=== PATIENT | female | born 1990 | race Two or more races ===

== ENCOUNTER 2018-12-22 20:22 | Emergency (ER) | payer MEDICAID ==
[~2018-12-22] VITALS: Ht 167.6 cm; Wt 81.6 kg
[~2018-12-22 20:22] MED LIST: PRENCAP61 OR
[2018-12-22 22:46] VITALS: BP 104/72
[2018-12-23] MEDS ORDERED: IBUPROFEN 800 MG TAB PO ONE (02:30)
== END 2018-12-23 02:31 | disposition home or self-care (01) ==
LOC: ER 20:29
DX: M79.672 Pain in left foot (principal)
CPT/HCPCS: 73630

== ENCOUNTER 2021-09-17 01:27 | Emergency (ER) | payer MEDICAID ==
[~2021-09-17] VITALS: Ht 162.6 cm; Wt 104.3 kg
[2021-09-17 02:03] VITALS: BP 146/87
[2021-09-17 03:20] LABS: Basophils # (auto) 0.1 10 ^3/uL (0-0.2); Basophils % (auto) 0.5 % (0.0-2.0); Eosinophils # (auto) 0.1 10 ^3/uL (0-0.8); Eosinophils % (auto) 0.8 % (0.0-7.0); Hematocrit 41.3 % (36.0-46.0); Hemoglobin 14.4 g/dL (12.2-16.2); Lymphocytes # (auto) 1.6 10 ^3/uL (0.4-5.4); Lymphocytes % (auto) 14.9 % (10.0-50.0); Mean Corpuscular Hemoglobin 32.1 pg (28.0-32.0); Mean Corpuscular Hgb Conc. 34.8 g/dL (32.0-36.0); Mean Corpuscular Volume 92.3 fL (80.0-100.0); Monocytes # (auto) 0.5 10 ^3/uL (0-1.3); Monocytes % (auto) 4.9 % (0.0-12.0); Neutrophils # (auto) 8.7 10 ^3/uL (1.6-8.6); Neutrophils % (auto) 78.9 % (37.0-80.0); Nucleated Red Blood Cells % 0.1 %; Red Blood Cells 4.47 10^6/uL (4.0-5.20); Red Cell Distribution Width 12.4 % (11.8-14.3)
[2021-09-17 03:24] LABS: Alanine Aminotransferase 26 U/L (13-56); Albumin 3.8 g/dL (3.4-5.0); Anion Gap 9 (5-15); Aspartate Aminotransferase 14 U/L (15-37); BUN/Creatinine Ratio 13.4; Blood Urea Nitrogen 9 mg/dL (7-18); Calcium 8.7 mg/dL (8.5-10.1); Carbon Dioxide 23 mmol/L (21-32); Chloride 107 mmol/L (98-107); GFR African American 130 mL/min; GFR Non-African American 108 mL/min; Glucose 98 mg/dL (74-106); Potassium 3.5 mmol/L (3.5-5.1); Sodium 139 mmol/L (136-145)
[2021-09-17 03:26] LABS: Alkaline Phosphatase 109 U/L (45-117); Bilirubin, Total 0.4 mg/dL (0.2-1.0); Total Protein 7.9 g/dL (6.4-8.2)
== END 2021-09-17 04:19 | disposition left against medical advice (07) ==
LOC: ER 01:30
DX: R07.9 Chest pain, unspecified (principal); Z53.21 Procedure and treatment not carried out due to patient leaving prior to being seen by health care provider
CPT/HCPCS: 36415; 71045; 80053; 85025; 93005

== ENCOUNTER 2022-04-09 15:23 | Emergency (ER) | payer MEDICAID ==
[~2022-04-09] VITALS: Ht 162.6 cm; Wt 103.0 kg
[2022-04-09 18:26] VITALS: BP 135/95
[2022-04-09] MEDS ORDERED: TRAM-297 PO (19:09)
[2022-04-09] MEDS ORDERED: traMADol HCL 50 MG TAB PO ONE (19:15)
== END 2022-04-09 19:39 | disposition home or self-care (01) ==
LOC: ER 15:23
DX: M79.604 Pain in right leg (principal); Z98.51 Tubal ligation status; Z98.890 Other specified postprocedural states
CPT/HCPCS: 93971

== ENCOUNTER 2023-08-09 21:01 | Emergency (ER) | payer MEDICAID ==
[~2023-08-09] VITALS: Ht 162.6 cm; Wt 100.0 kg
[~2023-08-09 21:01] MED LIST changes: +TRAM-297 PO
[2023-08-10 00:14] LABS: Basophils # (auto) 0.1 10 ^3/uL (0-0.2); Basophils % (auto) 0.8 % (0.0-2.0); Eosinophils # (auto) 0.1 10 ^3/uL (0-0.8); Eosinophils % (auto) 0.9 % (0.0-7.0); Hematocrit 41.7 % (36.0-46.0); Hemoglobin 14.2 g/dL (12.2-16.2); Lymphocytes # (auto) 2.4 10 ^3/uL (0.4-5.4); Lymphocytes % (auto) 23.1 % (10.0-50.0); Mean Corpuscular Hemoglobin 31.5 pg (28.0-32.0); Mean Corpuscular Volume 92.7 fL (80.0-100.0); Monocytes # (auto) 0.7 10 ^3/uL (0-1.3); Monocytes % (auto) 6.5 % (0.0-12.0); Neutrophils # (auto) 7.2 10 ^3/uL (1.6-8.6); Neutrophils % (auto) 68.7 % (37.0-80.0); Nucleated Red Blood Cells % 0.1 %; Red Cell Distribution Width 12.3 % (11.8-14.3); White Blood Cell 10.5 10^3/uL (4.4-10.8)
[2023-08-10 00:31] LABS: Alanine Aminotransferase 19 U/L (7-40); Albumin 4.5 g/dL (3.2-4.8); Alkaline Phosphatase 101 U/L (46-116); Anion Gap 6 (5-15); Aspartate Aminotransferase 14 U/L (13-40); Blood Urea Nitrogen 13 mg/dL (9-23); Calcium 9.1 mg/dL (8.7-10.4); Carbon Dioxide 25 mmol/L (20-30); Chloride 109 mmol/L (98-107); Glucose 105 mg/dL (74-106); Potassium 3.9 mmol/L (3.5-5.1); Sodium 140 mmol/L (136-145)
[2023-08-10 00:32] LABS: Bilirubin, Total 0.4 mg/dL (0.2-1.0); Total Protein 7.6 g/dL (5.7-8.2)
[2023-08-10 00:45] VITALS: BP 135/65; PULSE 78; RESP 18; O2SAT 98
[2023-08-10] MEDS: KETOROLAC TROMETH 60MG/2ML VIAL IM ONE (00:48)
[2023-08-10] MEDS ORDERED: OMEP-335 PO (02:17)
== END 2023-08-10 03:17 | disposition left against medical advice (07) ==
LOC: ER 21:01
DX: K29.70 Gastritis, unspecified, without bleeding (principal); Z79.899 Other long term (current) drug therapy
CPT/HCPCS: 36415; 74176; 76705; 80053; 83605; 85025; 96372; 99285; J1885

== ENCOUNTER 2024-01-30 22:21 | Inpatient (IN) | payer MEDICAID ==
[~2024-01-30] VITALS: Ht 154.9 cm; Wt 102.2 kg
[~2024-01-30 22:21] MED LIST changes: +OMEP-335 PO
[2024-01-30 23:21] LABS: Urine Bacteria None Seen /hpf (None Seen)
[2024-01-30 23:28] LABS: Urine Blood TRACE /uL (Negative); Urine Clarity Clear (Clear); Urine Color Light-Yellow (Yellow); Urine Protein, UAD Negative (Negative); Urine Specific Gravity 1.027 (1.001-1.035); Urine Urobilinogen 4 mg/dL (Negative); Urine WBC 1 /hpf (0 - 5); Urine pH 6.5 (5.0-9.0)
[2024-01-30 23:54] LABS: Chloride 110 mmol/L (98-107); Potassium 3.8 mmol/L (3.5-5.1); Sodium 138 mmol/L (136-145)
[2024-01-30 23:55] LABS: Anion Gap 9 (5-15); Calcium 9.3 mg/dL (8.7-10.4); Carbon Dioxide 19 mmol/L (20-30)
[2024-01-31] VITALS (20 sets, daily range): BP systolic 102–123; BP diastolic 57–75; PULSE 58–75; RESP 14–22; TEMP 97.3–98.1; O2SAT 95–98
[2024-01-31] LABS: BUN/Creatinine Ratio 12.6 (10.0-20.0); Blood Urea Nitrogen 12 mg/dL (9-23); Glucose 134 mg/dL (74-106)
[2024-01-31 00:29] LABS: Hemoglobin 14.1 g/dL (12.2-16.2); Nucleated Red Blood Cells % 0.1 %
[2024-01-31 00:31] LABS: Basophils # (auto) 0 10 ^3/uL (0-0.2); Basophils % (auto) 0.3 % (0.0-2.0); Eosinophils # (auto) 0 10 ^3/uL (0-0.8); Hematocrit 42.5 % (36.0-46.0); Lymphocytes # (auto) 1.3 10 ^3/uL (0.4-5.4); Mean Corpuscular Hemoglobin 31.3 pg (28.0-32.0); Mean Corpuscular Hgb Conc. 33.3 g/dL (32.0-36.0); Mean Corpuscular Volume 94.1 fL (80.0-100.0); Monocytes # (auto) 0.4 10 ^3/uL (0-1.3); Monocytes % (auto) 3.9 % (0.0-12.0); Neutrophils # (auto) 9.4 10 ^3/uL (1.6-8.6); Neutrophils % (auto) 83.8 % (37.0-80.0); Red Blood Cells 4.51 10^6/uL (4.0-5.20); Red Cell Distribution Width 12.4 % (11.8-14.3); White Blood Cell 11.2 10^3/uL (4.4-10.8)
[2024-01-31 00:44] LABS: Platelet Count (auto) 4 10^3/uL (140-450)
[2024-01-31 00:45] LABS: Platelet Estimate Markedly Decreased
[2024-01-31] MEDS: HYDROcodone-ACET 5/325MG TAB PO ONE (03:32)
[2024-01-31] MEDS ORDERED: ONDANSETRON HCL 4 MG/2 ML VIAL IV PRN (05:15)
[2024-01-31 06:01] LABS: Hemoglobin 12.7 g/dL (12.2-16.2)
[2024-01-31 06:03] LABS: Hematocrit 35.9 % (36.0-46.0); Mean Corpuscular Hemoglobin 32.4 pg (28.0-32.0); Mean Corpuscular Hgb Conc. 35.4 g/dL (32.0-36.0); Mean Corpuscular Volume 91.5 fL (80.0-100.0); Red Blood Cells 3.92 10^6/uL (4.0-5.20); Red Cell Distribution Width 12.4 % (11.8-14.3); White Blood Cell 11.3 10^3/uL (4.4-10.8)
[2024-01-31 06:25] LABS: Alanine Aminotransferase 17 U/L (7-40); Albumin 3.9 g/dL (3.2-4.8); Alkaline Phosphatase 80 U/L (46-116); Anion Gap 7 (5-15); Aspartate Aminotransferase 11 U/L (13-40); Blood Urea Nitrogen 18 mg/dL (9-23); Calcium 8.9 mg/dL (8.7-10.4); Carbon Dioxide 23 mmol/L (20-30); Chloride 109 mmol/L (98-107); Glucose 106 mg/dL (74-106); Potassium 3.6 mmol/L (3.5-5.1); Sodium 139 mmol/L (136-145)
[2024-01-31 06:26] LABS: Bilirubin, Total 0.6 mg/dL (0.2-1.0); Total Protein 6.9 g/dL (5.7-8.2)
[2024-01-31 06:33] LABS: Platelet Count (auto) 4 10^3/uL (140-450)
[2024-01-31 06:35] LABS: Band Neutrophils % (manual) 0; Basophils % (manual) 0 (0.0-2.0); Blast Cells 0; Eosinophils % (manual) 0 (0-7); Metamyelocytes % 0; Myelocytes % 0; Promyelocytes % 0; Reactive Lymphocytes 0
[2024-01-31 06:43] LABS: Erythrocyte Sedimentation Rate 9 mm/hr (0-20)
[2024-01-31 08:29] LABS: Lymphocytes % (manual) 13 (10.0-50.0); Monocytes % (manual) 5 (0-12); Platelet Estimate Markedly Decreased
[2024-01-31 09:01] LABS: Thyroid Stimulating Hormone 3.13 uIU/mL (0.55-4.78)
[2024-01-31] MEDS: methylPREDNISolone SOD SUCC 125 MG/2 ML VL IV SCH (14:33)
[2024-01-31] MEDS: ACETAMINOPHEN 325 MG TAB PO PRN (15:00)
[2024-02-01] VITALS (8 sets, daily range): BP systolic 112–120; BP diastolic 60–76; PULSE 69–92; RESP 16–18; TEMP 97–98.2; O2SAT 92–98
[2024-02-01] MEDS: HYDROcodone-ACET 5/325MG TAB PO PRN (00:48)
[2024-02-01 08:06] LABS: Thyroxine (T4) 7.7 ug/dL (4.5-12.0)
[2024-02-01 10:25] LABS: Basophils # (auto) 0 10 ^3/uL (0-0.2); Eosinophils # (auto) 0 10 ^3/uL (0-0.8); Monocytes # (auto) 0.1 10 ^3/uL (0-1.3)
[2024-02-01 10:27] LABS: Basophils % (auto) 0.2 % (0.0-2.0); Hematocrit 45.1 % (36.0-46.0); Hemoglobin 15.1 g/dL (12.2-16.2); Mean Corpuscular Hemoglobin 31.8 pg (28.0-32.0); Mean Corpuscular Hgb Conc. 33.5 g/dL (32.0-36.0); Monocytes % (auto) 0.8 % (0.0-12.0); Neutrophils # (auto) 13.5 10 ^3/uL (1.6-8.6); Nucleated Red Blood Cells % 0.2 %; Red Blood Cells 4.75 10^6/uL (4.0-5.20); Red Cell Distribution Width 12.9 % (11.8-14.3); White Blood Cell 14.6 10^3/uL (4.4-10.8)
[2024-02-01 10:48] LABS: Platelet Count (auto) 47 10^3/uL (140-450); Platelet Estimate Decreased
[2024-02-01 13:06] LABS: Albumin 3.1 g/dL (2.9-4.4); Alpha-1-Globulin 0.2 g/dL (0.0-0.4); Alpha-2-Globulin 0.6 g/dL (0.4-1.0); Gamma Globulin 1.1 g/dL (0.4-1.8); Protein Total Serum 6.1 g/dL (6.0-8.5)
[2024-02-01 14:06] LABS: Anti-Centromere B Antibody <0.2 AI (0.0-0.9); Anti-Jo-1 Antibody <0.2 AI (0.0-0.9); Anti-dsDNA Antibody 1 IU/mL (0-9); Antichromatin Antibody 0.3 AI (0.0-0.9); Antiscleroderma-70 Antibody <0.2 AI (0.0-0.9); RNP Antibody <0.2 AI (0.0-0.9); Sjogren's Anti-SS-A Antibody <0.2 AI (0.0-0.9); Sjogren's Anti-SS-B Antibody <0.2 AI (0.0-0.9); Smith Antibody <0.2 AI (0.0-0.9)
[2024-02-02 01:00] VITALS: BP 127/83; PULSE 74; RESP 18; TEMP 98.3; O2SAT 95
[2024-02-02] MEDS ORDERED: TOPI25TA84 PO (04:07)
[2024-02-02 05:00] VITALS: BP 114/76; PULSE 79; RESP 18; O2SAT 94
[2024-02-02 07:05] LABS: Basophils # (auto) 0 10 ^3/uL (0-0.2); Basophils % (auto) 0.1 % (0.0-2.0); Eosinophils # (auto) 0 10 ^3/uL (0-0.8); Hematocrit 38.5 % (36.0-46.0); Hemoglobin 13.5 g/dL (12.2-16.2); Lymphocytes # (auto) 1.3 10 ^3/uL (0.4-5.4); Lymphocytes % (auto) 6.2 % (10.0-50.0); Mean Corpuscular Volume 91.6 fL (80.0-100.0); Monocytes # (auto) 0.5 10 ^3/uL (0-1.3); Monocytes % (auto) 2.3 % (0.0-12.0); Neutrophils # (auto) 18.6 10 ^3/uL (1.6-8.6); Neutrophils % (auto) 91.4 % (37.0-80.0); Nucleated Red Blood Cells % 0.1 %; Platelet Count (auto) 72 10^3/uL (140-450); Red Cell Distribution Width 12.7 % (11.8-14.3); White Blood Cell 20.4 10^3/uL (4.4-10.8)
[2024-02-02] MEDS: predniSONE 20 MG TAB PO SCH (08:32)
[2024-02-02 09:00] VITALS: BP 112/69; PULSE 82; RESP 20; TEMP 97.6; O2SAT 98
[2024-02-02 09:48] LABS: Hepatitis B Surface Antibody Positive (Negative)
[2024-02-02 10:00] LABS: Hepatitis B Surface Antigen Negative (Negative)
[2024-02-02 10:07] LABS: CCP IgG/IgA Antibody 250 units (0-19)
[2024-02-02 10:21] LABS: Hepatitis C Antibody Negative (Negative)
[2024-02-02] MEDS ORDERED: PRED20TA2 PO (12:32)
[2024-02-02 13:00] VITALS: BP 120/71; PULSE 79; RESP 18; TEMP 97.8; O2SAT 99
[2024-02-02 13:06] LABS: Dilute Prothrombin Time(dPT) 35.3 sec (0.0-47.6); PTT-LA 25.9 sec (0.0-43.5); Thrombin Time 17.3 sec (0.0-23.0); dPT Confirm Ratio 0.93 Ratio (0.00-1.34); dRVVT 35.8 sec (0.0-47.0)
[2024-02-02 14:06] LABS: Lupus Interpretation Comment: (.)
[2024-02-02 16:50] VITALS: BP 115/68; PULSE 69; RESP 18; TEMP 97.9; O2SAT 99
[2024-02-05 19:06] LABS: Anticardiolipin IgG Antibody <9 GPL U/mL (0-14); Anticardiolipin IgM Antibody <9 MPL U/mL (0-12)
== END 2024-02-02 16:41 | disposition home or self-care (01) | DRG 661 ==
LOC: ER 22:21 → OVERFLOW 01-31 05:18 → ER 01-31 05:18 → WEST WING 01-31 11:36
PROVIDERS: ADMIT Nurse Practitioner; ATTEND Family Medicine
PROC: 302 Administration, Circulatory, Transfusion (ICD-10-PCS; principal; 2024-01-31)
DX: D69.3 Immune thrombocytopenic purpura (principal); E66.9 Obesity, unspecified; F41.0 Panic disorder [episodic paroxysmal anxiety]; M06.8A Other specified rheumatoid arthritis, other specified site; Z68.41 Body mass index [BMI] 40.0-44.9, adult; Z79.899 Other long term (current) drug therapy
CPT/HCPCS: 36415; 36430; 70450; 80048; 80053; 81001; 82607; 83516; 83615; 83735; 84155; 84165; 84436; 84443; 85007; 85025; 85027; 85613; 85652; 85670; 85705; 85732; 86147; 86200; 86225; 86235; 86703; 86706; 86803; 86850; 86900; 86901; 87340; 93306; 99291; G0378

== ENCOUNTER 2024-12-09 23:41 | Inpatient (IN) | payer MEDICAID ==
[~2024-12-09] VITALS: Ht 162.6 cm; Wt 109.9 kg
[~2024-12-09 23:41] MED LIST changes: -OMEP-335 PO; +PRED20TA2 PO; -PRENCAP61 OR; +TOPI25TA84 PO; -TRAM-297 PO
[2024-12-10 00:43] LABS: Hematocrit 36.4 % (36.0-46.0); Hemoglobin 13.1 g/dL (12.2-16.2); Mean Corpuscular Hemoglobin 32.4 pg (28.0-32.0); Mean Corpuscular Volume 90.2 fL (80.0-100.0); Nucleated Red Blood Cells % 0.0 %
--- NOTE | 2024-12-10 00:45 | DVH ---
EXAM: CT HEAD WITHOUT CONTRAST INDICATION: headache TECHNIQUE: CT of the head without intravenous contrast. Radiation Dose : 1. Head: CT Dose: CTDI volume is 53.39 mGy. Dose-length product is 964.5 mGy*cm The dose indicators for CT are the volume Computed Tomography (CT) Dose Index (CTDIvol) and the Dose Length Product (DLP), and are measured in units of mGy and mGy-cm, respectively. These indicators are not patient dose, but values generated from the CT scanner acquisition factors. The report includes radiation exposure data for exposures received during this examination. COMPARISON: CT HEAD WITHOUT CONTRAST on DOS: 01/31/24 FINDINGS: There is no evidence of acute intracranial hemorrhage, extra-axial collection, mass effect, midline s hift, herniation or hydrocephalus. The ventricles, sulci and cisterns are age appropriate. The paul-white differentiation is intact. The visualized paranasal sinuses and mastoid air cells are clear. The surrounding soft tissues and osseous structures are unremarkable. IMPRESSION: 1. No acute intracranial abnormality. Radiation optimization: All CT scans at this facility use at least one of these dose optimization jer hniques: automated exposure control mA and/or kV adjustment per patient size (includes targeted exam s where dose is matched to clinical indication) or iterative reconstruction.
[2024-12-10 00:50] LABS: Potassium 3.6 mmol/L (3.5-5.1); Sodium 142 mmol/L (136-145)
[2024-12-10 00:51] LABS: Anion Gap 12 (5-15); Calcium 9.7 mg/dL (8.7-10.4); Carbon Dioxide 22 mmol/L (20-31)
--- NOTE | 2024-12-10 00:51 | ED.PDOC ---
History of Present Illness HPI Comments 34 y/o morbidly obese F presents with headache and bilateral leg pain and tingling sensations. Patient is a poor historian. She endorses on headache originating in her forehead and radiating to her right ear, today, and having leg symptoms for over the past 3x days. Patient states on having tingling sensations to her legs whenever standing and shooting pain whenever sitting down and resting. 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 Patient denies any recent trauma or injuries in addition to having any further associated symptoms. Chief Complaint: Lower Extremity Time Seen by MD: 00:11 Primary Care Provider: DAVID Reviewed Notes: Nurses Notes, Medications, Allergies Allergies: Coded Allergies: NO KNOWN ALLERGIES (Unverified , 08/29/14) Home Meds Active Scripts Prednisone (Prednisone) 20 Mg Tab, 20 MG PO TID, #30 MG Prov:THU CANTU MD 02/02/24 Reported Medications Topiramate (Topiramate) 25 Mg Tab, 1 TAB PO BID, #60 TAB 02/02/24 Information Source: Patient Mode of Arrival: Ambulatory Severity: Moderate Timing: Hours Duration: Since onset Prehospital treatment: None Past Medical History Past Medical History (Other): gastritis right leg pain thrombocytopenia ITP Surgical History: , Tubal Ligation 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 Pertinent COKE CRUSHER OPERATOR History Family History Family History: Family hx of DM, Family hx of HTN Social History Smoker: Non-Smoker Alcohol: Occasionally Drugs: Denies Drug Use Lives In: Home All Other Systems: Reviewed and Negative (Comprehensive systems review obtained and negative except for what is stated in the HPI.) Physical Exam General Appearance: No Apparent Distress, Obese HEENT: Normal ENT Inspection, Pharynx Normal, TMs Normal Neck: Full Range of Motion, Non-Tender, Normal, Normal Inspection Respiratory: Chest Non-Tender, Lungs Clear, No Accessory Muscle Use, No Respiratory Distress, Normal Breath Sounds Cardiovascular: No Edema, No JVD, No Murmur, No Gallop, Normal Peripheral Pulses, Regular Rate/Rhythm Breast Exam: Deferred Gastrointestinal: No Organomegaly, Non Tender, No Pulsatile Mass, Normal Bowel Sounds, Soft Genitalia: Deferred Pelvic: Deferred Rectal: Deferred Extremities: No calf tenderness, Normal capillary refill, Normal inspection, Normal range of motion, Non-tender, No pedal edema Musculoskeletal : Apperance: Normal Neurologic: Alert, radiation oncology manager II-XII nml as Tested, No Motor Deficits, Normal Affect, Normal Mood, No Sensory Deficits Cerebellar Function: Normal Reflexes: Normal Skin: Dry, Normal Color, Warm Lymphatic: No Adenopathy Was a procedure done? Was a procedure done?: Yes Sedation Sedation?: No Informed consent obtained: Yes Lumbar Puncture Indication: Evaluation for possible (transverse myeliltis, guillain barre, infections) Procedure: Upright, Positioned, Sterile preparation, Local anesthetic injected (lidocaine) Spinal Needle size: 20 Inserted in: L 4th interspace Lumbar Puncture Result: Amount of CSF removed (6cc) Success: Was successful CSF Fluid: Clear Informed consent obtained: Yes Risks/benefits/alt described: Yes Notes pt tolerated procedure well, no complications Differential Dx Considerations may include: sciatica, neuropathy, tension headache, migraines, Guillain Marcus syndrome, transverse myelitis X-Ray, Labs, Meds, VS Vital Signs Date Time Temp Pulse Resp B/P (MAP) Pulse Ox O2 Delivery O2 Flow Rate FiO2 12/10/24 00:00 97.6 94 16 162/67 (98) 98 97.6 Lab Test 12/10/24 02:02 12/10/24 00:25 Range/Units Influenza Type A Antigen Pending Influenza Type B Antigen Pending SARS-CoV-2 Antigen (Rapid) Pending White Blood Count 18.1 H 4.4-10.8 10^3/uL Red Blood Count 4.04 4.0-5.20 10^6/uL Hemoglobin 13.1 12.2-16.2 g/dL Hematocrit 36.4 36.0-46.0 % Mean Corpuscular Volume 90.2 80.0-100.0 fL Mean Corpuscular Hemoglobin 32.4 H 28.0-32.0 pg Mean Corpuscular Hemoglobin Concent 35.9 32.0-36.0 g/dL Red Cell Distribution Width 12.4 11.8-14.3 % Platelet Count 295 140-450 10^3/uL Mean Platelet Volume 8.9 6.9-10.8 fL Neutrophils (%) (Auto) 79.0 37.0-80.0 % Lymphocytes (%) (Auto) 12.8 10.0-50.0 % Monocytes (%) (Auto) 7.6 0.0-12.0 % Eosinophils (%) (Auto) 0.0 0.0-7.0 % Basophils (%) (Auto) 0.6 0.0-2.0 % Neutrophils # (Auto) 14.4 H 1.6-8.6 10 ^3/uL Lymphocytes # (Auto) 2.3 0.4-5.4 10 ^3/uL Monocytes # (Auto) 1.4 H 0-1.3 10 ^3/uL Eosinophils # (Auto) 0 0-0.8 10 ^3/uL Basophils # (Auto) 0.1 0-0.2 10 ^3/uL Nucleated Red Blood Cells 0.0 % Sodium Level 142 136-145 mmol/L Potassium Level 3.6 3.5-5.1 mmol/L Chloride Level 108 H 98-107 mmol/L Carbon Dioxide Level 22 20-31 mmol/L Anion Gap 12 5-15 Blood Urea Nitrogen 15 9-23 mg/dL Creatinine 0.67 0.550-1.02 mg/dL Glomerular Filtration Rate Calc 116 >90 mL/min BUN/Creatinine Ratio 22.4 H 10.0-20.0 Serum Glucose 169 H 74-106 mg/dL Calcium Level 9.7 8.7-10.4 mg/dL [place] [id number] Ph: [phone] DIAGNOSTIC IMAGING Diagnostic Imaging Report : [id number] Signed PATIENT: RODOLFO RIVERA ACCT: [id number] UNIT: [id number] : 1990 LOC: ER ROOM / BED: / AGE / SEX: 34 / F ADM STATUS: REG ER SERVICE 0010 ORDERING PHYSICIAN: ISAC GRAYSON MD PROCEDURE(s): HWOCT - HEAD WITHOUT CONTRAST REASON: headache ORDER NUMBER(s): [id number], ACCESSION NUMBER(s): [id number] EXAM: CT HEAD WITHOUT CONTRAST INDICATION: headache TECHNIQUE: CT of the head without intravenous contrast. Radiation Dose : 1. Head: CT Dose: CTDI volume is 53.39 mGy. Dose-length product is 964.5 mGy*cm The dose indicators for CT are the volume Computed Tomography (CT) Dose Index (CTDIvol) and the Dose Length Product (DLP), and are measured in units of mGy and mGy-cm, respectively. These indicators are not patient dose, but values generated from the CT scanner acquisition factors. The report includes radiation exposure data for exposures received during this examination. COMPARISON: CT HEAD WITHOUT CONTRAST on DOS: 01/31/24 FINDINGS: There is no evidence of acute intracranial hemorrhage, extra-axial collection, mass effect, midline shift, herniation or hydrocephalus. The ventricles, sulci and cisterns are age appropriate. The paul-white differentiation is intact. The visualized paranasal sinuses and mastoid air cells are clear. The surrounding soft tissues and osseous structures are unremarkable. IMPRESSION: 1. No acute intracranial abnormality. Radiation optimization: All CT scans at this facility use at least one of these dose optimization techniques: automated exposure control mA and/or kV adjustment per patient size (includes targeted exams where dose is matched to clinical indication) or iterative reconstruction. ATED BY: ABRAM COOMBS MD DICTATED DATE/TIME: 12/10/2442 SIGNED BY: ABRAM COOMBS MD SIGNED DATE/TIME: 12/10/2442 CC: Time of 1ST Reevaluation: 00:41 Reevaluation 1ST: Unchanged Time of 2ND Reevaluation: 01:31 Reevaluation 2ND: Unchanged Patient Education/Counseling: Diagnosis, Treatment, Prognosis, Need For Follow Up Family Education/Counseling: No Family Present Comments pt has had other autoimmune conditions including ITP, RA. her symptoms of ascend ing numbness of the lower extremities are concerning for transverse myelitis. i have performed a LP. she will be admitted for monitoring of progression and neurology consult. Guillain Marcus is also a consideration, although she denies any recent infections, including gastroenteritis, URI symptoms. if she has TM or Guillain Marcus syndrome, she may be considered for plasmapheresis, and supportive care, including those required if progression involves the respiratory functions Additional Information Previous visits reviewed: 01/31/2024 encounter for thrombocytopenia, August 09, 2023 encounter for gastritis, and April 09, 2022 for right leg pain The following tests were ordered, and results were reviewed by me: CT HEAD, cbc, bmp Additional Information was gathered from interviewing the following independent historians: n/a I reviewed and agreed with the following test results read by other providers: CT HEAD w/o contrast I discussed treatment and results with medical personnel and: patient SEPSIS Sepsis Screen Date sepsis recognized/suspect: Dec 10, 2024 Time Sepsis recognized/suspect: 0000 Recent Procedure: No On Antibiotic Therapy: No Respiratory Rate >20: No Heart Rate >90: Yes (94) Temp<36 C (96.8 F) or >38.3 C: No SBP <90 or MAP <65 mmHG: Yes (162) New Acute Mental Status Change: No Is the patient on CPAP, BIPAP,: No Physician Orders Head Without Contrast (12/10/24 00:10) Urinalysis (12/10/24 01:09) Chest Portable (12/10/24 01:09) Rapid Influenza A&B (12/10/24 01:09) Covid19 Antigen Mandie (12/10/24 ) Csf Culture (12/10/24 01:35) Csf Culture W/ Gram Stain (12/10/24 01:35) Glucose, Csf (12/10/24 01:35) Igg Synthesis Rate, Csf (12/10/24 01:35) Csf Hsv1/2 Dna Pcr (12/10/24 01:35) Csf Cell Count & Diff (12/10/24 01:35) Protein, Csf (12/10/24 01:35) Vital Signs Date Time Temp Pulse Resp B/P (MAP) Pulse Ox O2 Delivery O2 Flow Rate FiO2 12/10/24 00:00 97.6 94 16 162/67 (98) 98 97.6 Laboratory Tests Test 12/10/24 00:25 White Blood Count 18.1 10^3/uL (4.4-10.8) H Departure 1 Departure Time of Disposition: 01:34 Impression: Primary Impression: Paresthesia of both feet Additional Impressions: Paresthesia of bilateral legs Guillain Barajas syndrome Transverse myelitis Disposition: ADMITTED INPATIENT Admit to: Med Surg Condition: Serious Discharged With: Self Critical Care Note Critical Care Time?: Yes (45 min-critical care time only) Critical care comment: Due to concerns for patients condition deteriorating, the care required my highest level of attention and readiness to intervene. I assessed the patient, reviewed the medical records, ordered the appropriate tests and treatments, then reassessed for results and responsiveness. I communicated with medical personnel and consultants and formulated a plan of care. Total critical care time excludes any procedures Stability Stability form required: No Heart Score Heart Score: Heart Score Response (Comments) Value History N/A 0 EKG N/A 0 Age N/A 0 Risk Factors N/A 0 Troponin N/A 0 Total 0 I personally scribed for ISAC GRAYSON MD ([email or web address]) on 12/10/24 at 00:51. Electronically submitted by Keny Kelly ([email or web address]). I personally scribed for ISAC GRAYSON MD ([email or web address]) on 12/10/24 at 02:02. Electronically submitted by Keny Kelly ([email or web address]). ISAC GRAYSON MD Dec 10, 2024 00:51
[2024-12-10 00:56] LABS: BUN/Creatinine Ratio 22.4 (10.0-20.0); Blood Urea Nitrogen 15 mg/dL (9-23)
[2024-12-10 01:11] LABS: Chloride 108 mmol/L (98-107); Glucose 169 mg/dL (74-106)
--- NOTE | 2024-12-10 02:03 | DVH ---
CHEST RADIOGRAPH Indication: r/o pneumonia Technique: Single frontal view of the chest was obtained COMPARISON: CHEST PORTABLE on DOS: 09/17/21, CXRP on DOS: 09/17/21 FINDINGS: Lines and Tubes: None Lungs: Clear Pleura: No effusion. No pneumothorax. Cardiomediastinal contours: Unremarkable Bones: Unremarkable IMPRESSION: 1. No acute disease.
[2024-12-10 03:00] VITALS: PULSE 76; RESP 16; O2SAT 98
[2024-12-10] MEDS: MORPHINE SULFATE 4 MG/ML SYR/VIAL IV ONE (03:16)
[2024-12-10] MEDS: ONDANSETRON HCL 4 MG/2 ML VIAL IV ONE (03:17)
[2024-12-10 03:36] LABS: COVID19 ANTIGEN SOFIA FIA NEGATIVE (NEGATIVE)
[2024-12-10 04:14] LABS: Protein, CSF 34.2 mg/dL (15-45)
[2024-12-10 06:01] LABS: Description,CSF COLORLESS
[2024-12-10 07:37] LABS: Urine Protein, UAD Negative (Negative)
--- NOTE | 2024-12-10 07:53 | DVHHP2 ---
History of Present Illness Reason for Visit: Lower extremity weakness and numbness History of Present Illness Bruna Fiore is a 34-year-old female with past medical history of idiopathic thrombocytopenia, who came to the hospital due to bilateral lower extremity weakness. Patient states her symptoms began on Tuesday with weakness in her legs. By Tuesday evening she was experiencing weakness, numbness, tingling, and pain in bilateral lower extremities that prompted her to come to the hospital. She has a history of ITP, and states she felt similar prior when her platelets were low so she thought it could be that. Past Surgical History: (x 5), Tubal Ligation Smoke: No ALCOHOL: none Drugs: None Lives: with Family Domestic Violence: Neg Review of Systems Constitutional: No: Fever, Chills, Sweats, Weakness, Malaise, Other Eyes: No: Pain, Vision change, Conjunctivae inflammation, Eyelid inflammation, Other, Redness ENT: No: Ear pain, Ear discharge, Nose pain, Nose discharge, Nose congestion, Mouth pain, Mouth swelling, Throat pain, Throat swelling, Other Respiratory: No: Cough, Dry, Shortness of breath, SOB with excertion, Wheezing, Hemoptysis, Pleuritic Pain, Sputum, Wheezing, Other Cardiovascular: No: Chest Pain, Palpitations, Orthopnea, Paroxysmal Noc. Dyspnea, Edema, Lt Headedness, Other Gastrointestinal: No: Nausea, Vomiting, Abdominal Pain, Diarrhea, Constipation, Melena, Hematochezia, Other Genitourinary: No Dysuria, No Frequency, No Incontinence, No Hematuria, No Retention, No Other Musculoskeletal: No: other, neck pain, shoulder pain, arm pain, back pain, hand pain, leg pain, foot pain Skin: No: Rash, Lesions, Jaundice, Bruising, Other Neurological: Weakness, Numbness; No: Incoordination, Change in speech, Confusion, Seizures, Other Allergies: Coded Allergies: NO KNOWN ALLERGIES (Unverified , 08/29/14) Exam Vital Signs Vital Signs Date Time Temp Pulse Resp B/P (MAP) Pulse Ox O2 Delivery O2 Flow Rate FiO2 12/10/24 06:00 84 135/97 (110) 96 12/10/24 04:00 16 12/10/24 03:00 98.2 98.2 12/10/24 03:00 Room Air* 0 21 General Appearance: Alert, Oriented X3, Cooperative HEENT: Atraumatic, PERRLA Respiratory: Clear to auscultation, Normal air movement Cardiovascular: Regular rate, Normal S1, Normal S2 Abdominal: Normal bowel sounds, Soft, No tenderness, No hepatospenomegaly Extremities: No clubbing, No cyanosis, No edema, Normal pulses Skin: No rashes, No breakdown, No significant lesion Neuro: Normal speech, Other (bilateral lower extremity weakness) Psych/Mental Status: Mental status NL, Mood NL Labs/Xrays Labs Test 12/10/24 06:55 12/10/24 02:47 12/10/24 02:02 12/10/24 00:25 Range/Units Urine Color Light-yellow Yellow Urine Clarity Clear Clear Urine pH 6.0 5.0-9.0 Urine Specific [place] 1.021 1.001-1.035 Urine Protein Negative Negative Urine Ketones Negative Negative Urine Blood Negative Negative /uL Urine Nitrite Negative Negative Urine Bilirubin Negative Negative Urine Urobilinogen Normal Negative mg/dL Urine Leukocyte Esterase 2+ Negative /uL Urine RBC 2 0 - 4 /hpf Urine Microscopic WBC 2 0-5 /HPF Urine Squamous Epithelial Cells Few <5 /hpf Urine Bacteria None seen None Seen /hpf Urine Mucus Few None Seen Urine Glucose Trace Normal mg/dL CSF Tube Number Tube 3 CSF Appearance Colorless CSF WBC 0 0-5 CUMM CSF RBC 5 0-5 CUMM CSF Protein (Tube 2) 34.2 15-45 mg/dL CSF Mononuclear Cells % CSF Polymorphonuclear Cells % CSF Glucose 106 H 40-70 mg/dL Influenza Type A Antigen Negative Negative Influenza Type B Antigen Negative Negative SARS-CoV-2 Antigen (Rapid) Negative NEGATIVE White Blood Count 18.1 H 4.4-10.8 10^3/uL Red Blood Count 4.04 4.0-5.20 10^6/uL Hemoglobin 13.1 12.2-16.2 g/dL Hematocrit 36.4 36.0-46.0 % Mean Corpuscular Volume 90.2 80.0-100.0 fL Mean Corpuscular Hemoglobin 32.4 H 28.0-32.0 pg Mean Corpuscular Hemoglobin Concent 35.9 32.0-36.0 g/dL Red Cell Distribution Width 12.4 11.8-14.3 % Platelet Count 295 140-450 10^3/uL Mean Platelet Volume 8.9 6.9-10.8 fL Neutrophils (%) (Auto) 79.0 37.0-80.0 % Lymphocytes (%) (Auto) 12.8 10.0-50.0 % Monocytes (%) (Auto) 7.6 0.0-12.0 % Eosinophils (%) (Auto) 0.0 0.0-7.0 % Basophils (%) (Auto) 0.6 0.0-2.0 % Neutrophils # (Auto) 14.4 H 1.6-8.6 10 ^3/uL Lymphocytes # (Auto) 2.3 0.4-5.4 10 ^3/uL Monocytes # (Auto) 1.4 H 0-1.3 10 ^3/uL Eosinophils # (Auto) 0 0-0.8 10 ^3/uL Basophils # (Auto) 0.1 0-0.2 10 ^3/uL Nucleated Red Blood Cells 0.0 % Sodium Level 142 136-145 mmol/L Potassium Level 3.6 3.5-5.1 mmol/L Chloride Level 108 H 98-107 mmol/L Carbon Dioxide Level 22 20-31 mmol/L Anion Gap 12 5-15 Blood Urea Nitrogen 15 9-23 mg/dL Creatinine 0.67 0.550-1.02 mg/dL Glomerular Filtration Rate Calc 116 >90 mL/min BUN/Creatinine Ratio 22.4 H 10.0-20.0 Serum Glucose 169 H 74-106 mg/dL Calcium Level 9.7 8.7-10.4 mg/dL CHEST RADIOGRAPH FINDINGS: Lines and Tubes: None Lungs: Clear Pleura: No effusion. No pneumothorax. Cardiomediastinal contours: Unremarkable Bones: Unremarkable IMPRESSION: 1. No acute disease. EXAM: CT HEAD WITHOUT CONTRAST FINDINGS: There is no evidence of acute intracranial hemorrhage, extra-axial collection, mass effect, midline shift, herniation or hydrocephalus. The ventricles, sulci and cisterns are age appropriate. The paul-white differentiation is intact. The visualized paranasal sinuses and mastoid air cells are clear. The surrounding soft tissues and osseous structures are unremarkable. IMPRESSION: 1. No acute intracranial abnormality. Assessment/Plan Assessment/Plan Assessment: Paresthesia of bilateral legs, Possible Guillain Barajas syndrome, Hyperglycemia, Plan: Admit to Tele, Neurology consult, A1c, Physical therapy evaluation, Plan discussed with: Patient Date of Service: Dec 10, 2024 Billing Provider: JUANCHO LUIS Common Visit Codes: 80328-QGQMCKH INP/OBS CARE (MOD) JUANCHO LUIS Dec 10, 2024 07:52
[2024-12-10 07:54] VITALS: PULSE 84; RESP 16; O2SAT 96
[2024-12-10] MEDS ORDERED: DOCUSATE SOD 100 MG CAP PO PRN (08:00)
[2024-12-10] MEDS ORDERED: NITROGLYCERIN 0.4 MG SL TAB SL PRN (08:00)
[2024-12-10] MEDS ORDERED: MORPHINE SULFATE INJ 2 MG/ml SYRG IV PRN (08:00)
[2024-12-10] MEDS ORDERED: ONDANSETRON HCL 4 MG/2 ML VIAL IV PRN (08:00)
[2024-12-10] MEDS: HYDROcodone-ACET 5/325MG TAB PO PRN (08:50)
--- NOTE | 2024-12-10 09:06 | DVHINCON2 ---
Date of service: Dec 10, [address] Johnston Reason for Consultation Possible Guillain-[place] syndrome History of Present Illness Ms. Fiore is a 34 years old right-handed female with a history of idiopathic thrombocytopenia, obesity, anxiety, she came to the [facility] on 12/09/24 with a chief complaint of bilateral leg weakness, headache. At that time, she is alert and fully oriented, she provided the following history On 12/07/2024, he woke up in the morning with both leg weakness on 12/10/2024, the bilateral leg weakness persists, meanwhile she also developed tingling and numbness in the feet and legs, she developed intense, 10/10, global headache with heightened sensitivity to lights and noise, mild nausea On 12/10/2024, she has noticed some improvement in her legs, but the tingling and numbness persists She has been denies history of headache, but she reports history of anxiety, and she had one seen by a psychiatrist and was on psychiatric medications treatment Urinalysis, 12/10/2024: WBC: 2, urine leukocyte esterase: 2+ CSF, 12/10/2024: Clear, WBC: 0, protein: 34.2, glucose: 106 WBC/HB/PLT/MCV, 11/23/2024: 18.1/13.1/295/90.2 PT/INR/PTT, BMP 12/10/2024: Unremarkable CT head, 12/10/2024: No acute intracranial abnormality Past Medical History Thrombocytopenia, idiopathic thrombocytopenia, anxiety, anxiety, the history of headache Past Surgical History , tubal ligation Family History: Cardiovascular disease G8 MOTHER, Onset:50's - 60 G8 FATHER, Onset:60 years & older Chronic kidney disease Diabetes mellitus G8 MOTHER, Onset:40's - 50 G8 FATHER, Onset:60 years & older FHx: renal failure G8 FATHER, Onset:60 years & older Hypertension G8 FATHER, Onset:40's - 50 Thyroid disease G8 MOTHER Family History Hypertension, diabetes, thyroid disorder, kidney failure, anxiety Social History She has no history of tobacco smoking, drug or alcohol abuse Allergies: Coded Allergies: NO KNOWN ALLERGIES (Unverified , 08/29/14) Home Meds Active Scripts Prednisone (Prednisone) 20 Mg Tab, 20 MG PO TID, #30 MG Prov:THU CANTU MD 02/02/24 Reported Medications Topiramate (Topiramate) 25 Mg Tab, 1 TAB PO BID, #60 TAB 02/02/24 Current Medications Current Medications Medications (Trade) Dose Ordered Sig/Paulino Route PRN Reason Start Time Stop Time Status Last Admin Acetaminophen/ Hydrocodone Bitart ([place] 5/325MG Tab) 1 tab Q4HP PRN PO MODERATE PAIN (4-6 PAIN SCALE) 12/10/24 08:00 12/10/24 08:50 Ondansetron HCl (Zofran) 4 mg Q4HP PRN IV NAUSEA / VOMITING 12/10/24 08:00 Docusate Sodium (Colace Capsule) 100 mg BIDPRN PRN PO FOR CONSTIPATION 12/10/24 08:00 Acetaminophen (Tylenol Tablet) 650 mg Q6HP PRN PO PAIN SCALE 1-3 OR TEMP>100.4 12/10/24 08:00 Nitroglycerin (Ntrostat Sublingual) 0.4 mg Q5MINP PRN SL FOR CHEST PAIN 12/10/24 08:00 Morphine Sulfate 2 mg Q30M PRN IV FOR CHEST PAIN 12/10/24 08:00 Review of Systems As above, the other systems are negative Vital Signs Vital Signs Date Time Temp Pulse Resp B/P (MAP) Pulse Ox O2 Delivery O2 Flow Rate FiO2 12/10/24 07:55 97.7 84 16 125/87 (100) 96 97.7 12/10/24 07:54 Room Air* 0 21 Physical Exam GENERAL EXAM: General: the patient is well developed and nourished. No acute distress. HEENT: Normocephalic, neck is supple, no carotid bruits. No mass. RESPIRATORY: Normal respiratory effort with symmetrical lung expansion. Lungs clear to auscultation. CARDIOVASCULAR: Regular rate and rhythm with no murmurs. S1, S2. ABDOMEN: Soft, nontender, normal bowel sound NEUROLOGICAL: MENTAL STATUS: Awake and alert. Oriented to person, place, time and general circumstances. Able to give personal history. SPEECH, LANGUAGE, HIGHER CORTICAL FUNCTION: no aphasia or dysathria. CRANIAL NERVES: #2: Intact visual carter to confrontation. The optic discs were sharp. #3,4,6: Pupils are equal, round and reactive. EOMs full and conjugate. No nystagmus. #5: Facial sensation intact in all three divisions bilaterally. Mandibular strength intact. #7: Facial muscles symmetrical and strength intact. #8: Hearing grossly normal to voice. #9,10: Uvula and soft palate rise in the midline. Swallow and voice are normal. #11: Trapezius and sternomastoid strength intact bilaterally. #12: Tongue midline. No fasciculations or atrophy. SENSATION: Sensation to touch and pinprick is normal. MOTOR: Normal tone in the upper and lower extremity. Normal muscle bulk. No fasciculations. No abnormal movements or posturing. Muscle strength of the major groups in the upper extremities is 5/5. Muscle strength of the major groups in the lower extremities is 5/5. REFLEXES: Deep tendon reflexes normal and symmetrical. No pathological reflexes. CEREBELLAR/COORDINATION: Finger to nose and heel to lee are normal bilaterally. GAIT/STATION: deferred. Labs/Diagnostic Data Labs Test 12/10/24 06:55 12/10/24 02:47 12/10/24 02:02 12/10/24 00:25 Range/Units Urine Color Light-yellow Yellow Urine Clarity Clear Clear Urine pH 6.0 5.0-9.0 Urine Specific [place] 1.021 1.001-1.035 Urine Protein Negative Negative Urine Ketones Negative Negative Urine Blood Negative Negative /uL Urine Nitrite Negative Negative Urine Bilirubin Negative Negative Urine Urobilinogen Normal Negative mg/dL Urine Leukocyte Esterase 2+ Negative /uL Urine RBC 2 0 - 4 /hpf Urine Microscopic WBC 2 0-5 /HPF Urine Squamous Epithelial Cells Few <5 /hpf Urine Bacteria None seen None Seen /hpf Urine Mucus Few None Seen Urine Glucose Trace Normal mg/dL CSF Tube Number Tube 3 CSF Appearance Colorless CSF WBC 0 0-5 CUMM CSF RBC 5 0-5 CUMM CSF Protein (Tube 2) 34.2 15-45 mg/dL CSF Mononuclear Cells % CSF Polymorphonuclear Cells % CSF Glucose 106 H 40-70 mg/dL Influenza Type A Antigen Negative Negative Influenza Type B Antigen Negative Negative SARS-CoV-2 Antigen (Rapid) Negative NEGATIVE White Blood Count 18.1 H 4.4-10.8 10^3/uL Red Blood Count 4.04 4.0-5.20 10^6/uL Hemoglobin 13.1 12.2-16.2 g/dL Hematocrit 36.4 36.0-46.0 % Mean Corpuscular Volume 90.2 80.0-100.0 fL Mean Corpuscular Hemoglobin 32.4 H 28.0-32.0 pg Mean Corpuscular Hemoglobin Concent 35.9 32.0-36.0 g/dL Red Cell Distribution Width 12.4 11.8-14.3 % Platelet Count 295 140-450 10^3/uL Mean Platelet Volume 8.9 6.9-10.8 fL Neutrophils (%) (Auto) 79.0 37.0-80.0 % Lymphocytes (%) (Auto) 12.8 10.0-50.0 % Monocytes (%) (Auto) 7.6 0.0-12.0 % Eosinophils (%) (Auto) 0.0 0.0-7.0 % Basophils (%) (Auto) 0.6 0.0-2.0 % Neutrophils # (Auto) 14.4 H 1.6-8.6 10 ^3/uL Lymphocytes # (Auto) 2.3 0.4-5.4 10 ^3/uL Monocytes # (Auto) 1.4 H 0-1.3 10 ^3/uL Eosinophils # (Auto) 0 0-0.8 10 ^3/uL Basophils # (Auto) 0.1 0-0.2 10 ^3/uL Nucleated Red Blood Cells 0.0 % Sodium Level 142 136-145 mmol/L Potassium Level 3.6 3.5-5.1 mmol/L Chloride Level 108 H 98-107 mmol/L Carbon Dioxide Level 22 20-31 mmol/L Anion Gap 12 5-15 Blood Urea Nitrogen 15 9-23 mg/dL Creatinine 0.67 0.550-1.02 mg/dL Glomerular Filtration Rate Calc 116 >90 mL/min BUN/Creatinine Ratio 22.4 H 10.0-20.0 Serum Glucose 169 H 74-106 mg/dL Calcium Level 9.7 8.7-10.4 mg/dL Assessment Bilateral leg weakness, paresthesia, with normal deep tendon reflexes, a chance of Guillain-[place] is low Headache, resolved History of anxiety Plan/Recommendation Monitoring Supportive treatment Telemetry Up to chair Physical therapy Follow up her doctors on discharge NEERU This medical document was created using an electronic medical record system with [employer] dictation system. Although this document has been carefully reviewed, there may still be some phonetic and typographical errors. These areas are purely typographical due to imperfections of the software programs, a nd do not reflect any compromise in the patient's medical care. Plan discussed with: Patient, Other ERICK CABALLERO MD Dec 10, 2024 09:06
[2024-12-10 14:43] VITALS: BP 113/67; PULSE 72; RESP 17; TEMP 97.5; O2SAT 95
[2024-12-10] MEDS ORDERED: TRAM50TA2 PO (14:58)
[2024-12-10 17:55] VITALS: BP 115/74; PULSE 62; RESP 11; TEMP 97.8; O2SAT 92
[2024-12-10 20:00] VITALS: PULSE 86; RESP 18; O2SAT 98
[2024-12-10 23:10] VITALS: BP 123/82; PULSE 86; RESP 18; TEMP 97.7; O2SAT 98
[2024-12-11 01:00] VITALS: BP 113/80; PULSE 76; RESP 18; TEMP 98.3; O2SAT 97
[2024-12-11 02:15] VITALS: PULSE 86; RESP 18; O2SAT 98
[2024-12-11 05:00] VITALS: BP 90/73; PULSE 85; RESP 18; TEMP 97.5; O2SAT 96
[2024-12-11] MEDS: ACETAMINOPHEN 325 MG TAB PO PRN (06:30)
[2024-12-11 07:14] LABS: Alanine Aminotransferase 13 U/L (7-40); Albumin 3.8 g/dL (3.2-4.8); Alkaline Phosphatase 84 U/L (46-116); Anion Gap 8 (5-15); BUN/Creatinine Ratio 27.0 (10.0-20.0); Blood Urea Nitrogen 17 mg/dL (9-23); Calcium 9.4 mg/dL (8.7-10.4); Carbon Dioxide 28 mmol/L (20-31); Chloride 106 mmol/L (98-107); Glucose 95 mg/dL (74-106); Potassium 3.9 mmol/L (3.5-5.1); Sodium 142 mmol/L (136-145); Total Protein 6.1 g/dL (5.7-8.2)
[2024-12-11 07:15] LABS: Bilirubin, Total 0.3 mg/dL (0.2-1.0)
[2024-12-11 07:53] LABS: Hematocrit 37.8 % (36.0-46.0); Hemoglobin 13.1 g/dL (12.2-16.2); Mean Corpuscular Hemoglobin 31.7 pg (28.0-32.0); Mean Corpuscular Volume 91.6 fL (80.0-100.0); Nucleated Red Blood Cells % 0.1 %
[2024-12-11 08:00] VITALS: PULSE 66; PULSE 77; RESP 17; O2SAT 95
[2024-12-11 08:07] LABS: Immunoglobulin G, Serum 1076.0 mg/dL (586-1602)
--- NOTE | 2024-12-11 12:46 | DVHPN2 ---
Progress Note - Dictate Date Seen: Dec 11, 2024 Medical Necessity Reason Pt with a Central, PICC or Fol: No Subjective Ms. Fiore is a 34 years old right-handed female with a history of idiopathic thrombocytopenia, obesity, anxiety, she came to the [facility] on 12/09/24 with a chief complaint of bilateral leg weakness, headache. I have seen and examined the patient, I have discussed with her nurse, her in the room with her. She is doing fine, no new complaints, she has headache when he sitting up, better when she is supine in the bed Her has been released the patient's snore loud, and the he has seen signs s uggestive of sleep apnea She is not refreshed on waking up from sleep, she is tired all day long Urinalysis, 12/10/2024: WBC: 2, urine leukocyte esterase: 2+ CSF, 12/10/2024: Clear, WBC: 0, protein: 34.2, glucose: 106 WBC/HB/PLT/MCV, 11/23/2024: 18.1/13.1/295/90.2 PT/INR/PTT, BMP 12/10/2024: Unremarkable CT head, 12/10/2024: No acute intracranial abnormality vital signs Vital Sign Date Time Temp Pulse Resp B/P (MAP) Pulse Ox O2 Delivery O2 Flow Rate FiO2 12/11/24 08:00 66 12/11/24 08:00 17 95 Room Air* 0 21 12/11/24 05:00 97.5 90/73 (79) 97.5 Total Intake and Output 12/10/24 12/10/24 12/11/24 15:00 23:00 07:00 Intake Total 1600 ml Balance 1600 ml medications Current Medications Medications Dose Ordered Sig/Paulino Route Start Time Stop Time Status Last Admin Dose Admin Acetaminophen/ Hydrocodone Bitart 1 tab Q4HP PRN PO 12/10/24 08:00 12/11/24 09:21 1 TAB Ondansetron HCl 4 mg Q4HP PRN IV 12/10/24 08:00 Docusate Sodium 100 mg BIDPRN PRN PO 12/10/24 08:00 Acetaminophen 650 mg Q6HP PRN PO 12/10/24 08:00 12/11/24 06:30 650 MG Nitroglycerin 0.4 mg Q5MINP PRN SL 12/10/24 08:00 Morphine Sulfate 2 mg Q30M PRN IV 12/10/24 08:00 objective General: the patient is well developed and nourished. No acute distress. MENTAL STATUS: Awake and alert. Oriented to person, place, time and general circumstances. Able to give personal history. SPEECH, LANGUAGE, HIGHER CORTICAL FUNCTION: no aphasia or dysathria. CRANIAL NERVES: Pupils are equal, round and reactive. EOMs full and conjugate. No nystagmus. Facial sensation intact in all three divisions bilaterally. Mandibular strength intact. Facial muscles symmetrical and strength intact. SENSATION: Sensation to touch and pinprick is normal. MOTOR: Normal tone in the upper and lower extremity. Normal muscle bulk. No fasciculations. No abnormal movements or posturing. Muscle strength of the major groups in the extremities is 5/5. REFLEXES: Deep tendon reflexes normal and symmetrical. No pathological reflexes. CEREBELLAR/COORDINATION: Finger to nose and heel to lee are normal bilaterally. GAIT/STATION: deferred. laboratory and microbiology Laboratory Tests 12/11/24 06:25 Test 12/11/24 06:25 Range/Units Serum Glucose 95 74-106 mg/dL Problem List Bilateral leg weakness, paresthesia, with normal deep tendon reflexes, a chance of Guillain-[place] is low Headache, resolved History of anxiety Posterior LP headache Sleep-related breathing disorder Obesity Assessment/Plan Monitoring Supportive treatment Telemetry Bed rest Weight control Good hydration A trial of APAP in hospital Up to chair Physical therapy Further address her sleep related breathing disease as no out patient Hypersomia precaution Follow up her doctors on discharge NEERU This medical document was created using an electronic medical record system with [employer] dictation system. Although this document has been carefully reviewed, there may still be some phonetic and typographical errors. These areas are purely typographical due to imperfections of the software programs, and do not reflect any compromise in the patient's medical care. Prognosis poor Plan discussed with: Patient, Spouse, Other Total Time (mins): 35 ERICK CABALLERO MD Dec 11, 2024 12:46
[2024-12-11 13:00] VITALS: BP 131/79; PULSE 82; RESP 18; TEMP 98.5; O2SAT 99
[2024-12-11 15:05] VITALS: BP 106/68; PULSE 78; RESP 16; TEMP 98; O2SAT 98
[2024-12-12 22:06] LABS: HSV-1 DNA CSF Negative (Negative); HSV-2 DNA Negative (Negative)
[2024-12-13 12:07] LABS: Albumin, CSF 15.0 mg/dL (7-29); IgG, Quant, CSF 2.1 mg/dL (0.0-6.7); IgG, Syn Rate,CSF -1.9 mg/day (-9.9 TO +3.3)
--- NOTE | 2024-12-23 06:13 | DVHDS2 ---
Discharge Summary Date of Admission Dec 10, 2024 at 07:48 Date of Discharge: Dec 11, 2024 Labs/Diagnostic Data: Laboratory Results Test 12/11/24 06:25 12/10/24 06:55 12/10/24 02:47 12/10/24 02:02 White Blood Count 8.6 10^3/uL (4.4-10.8) Red Blood Count 4.12 10^6/uL (4.0-5.20) Hemoglobin 13.1 g/dL (12.2-16.2) Hematocrit 37.8 % (36.0-46.0) Mean Corpuscular Volume 91.6 fL (80.0-100.0) Mean Corpuscular Hemoglobin 31.7 pg (28.0-32.0) Mean Corpuscular Hemoglobin Concent 34.6 g/dL (32.0-36.0) Red Cell Distribution Width 12.6 % (11.8-14.3) Platelet Count 242 10^3/uL (140-450) Mean Platelet Volume 8.9 fL (6.9-10.8) Neutrophils (%) (Auto) 53.8 % (37.0-80.0) Lymphocytes (%) (Auto) 36.9 % (10.0-50.0) Monocytes (%) (Auto) 7.0 % (0.0-12.0) Eosinophils (%) (Auto) 1.5 % (0.0-7.0) Basophils (%) (Auto) 0.8 % (0.0-2.0) Neutrophils # (Auto) 4.6 10 ^3/uL (1.6-8.6) Lymphocytes # (Auto) 3.2 10 ^3/uL (0.4-5.4) Monocytes # (Auto) 0.6 10 ^3/uL (0-1.3) Eosinophils # (Auto) 0.1 10 ^3/uL (0-0.8) Basophils # (Auto) 0.1 10 ^3/uL (0-0.2) Nucleated Red Blood Cells 0.1 % Sodium Level 142 mmol/L (136-145) Potassium Level 3.9 mmol/L (3.5-5.1) Chloride Level 106 mmol/L (98-107) Carbon Dioxide Level 28 mmol/L (20-31) Anion Gap 8 (5-15) Blood Urea Nitrogen 17 mg/dL (9-23) Creatinine 0.63 mg/dL (0.550-1.02) Glomerular Filtration Rate Calc 118 mL/min (>90) BUN/Creatinine Ratio 27.0 (10.0-20.0) Serum Glucose 95 mg/dL (74-106) Calcium Level 9.4 mg/dL (8.7-10.4) Total Bilirubin 0.3 mg/dL (0.2-1.0) Aspartate Amino Transferase (AST) 9 U/L (13-40) Alanine Aminotransferase (ALT) 13 U/L (7-40) Alkaline Phosphatase 84 U/L (46-116) Total Protein 6.1 g/dL (5.7-8.2) Albumin 3.8 g/dL (3.2-4.8) Urine Color Light-yellow (Yellow) Urine Clarity Clear (Clear) Urine pH 6.0 (5.0-9.0) Urine Specific [place] 1.021 (1.001-1.035) Urine Protein Negative (Negative) Urine Ketones Negative (Negative) Urine Blood Negative /uL (Negative) Urine Nitrite Negative (Negative) Urine Bilirubin Negative (Negative) Urine Urobilinogen Normal mg/dL (Negative) Urine Leukocyte Esterase 2+ /uL (Negative) Urine RBC 2 /hpf (0 - 4) Urine Microscopic WBC 2 /HPF (0-5) Urine Squamous Epithelial Cells Few /hpf (<5) Urine Bacteria None seen /hpf (None Seen) Urine Mucus Few (None Seen) Urine Glucose Trace mg/dL (Normal) CSF Tube Number Tube 3 CSF Appearance Colorless CSF WBC 0 CUMM (0-5) CSF RBC 5 CUMM (0-5) CSF Protein (Tube 2) 34.2 mg/dL (15-45) CSF Mononuclear Cells % CSF Polymorphonuclear Cells % CSF Glucose 106 mg/dL (40-70) CSF Albumin 15 mg/dL (7-29) CSF Immunoglobulin G 2.1 mg/dL (0.0-6.7) Serum Immunoglobulin G 1076 mg/dL (586-1602) Serum Albumin (with CSF) 4.4 g/dL (3.9-4.9) CSF IgG Synthesis Rate (MS) -1.9 mg/day (-9.9 TO +3.3) CSF Herpes Simplex I DNA (PCR) Negative (Negative) CSF Herpes Simplex II DNA (PCR) Negative (Negative) Influenza Type A Antigen Negative (Negative) Influenza Type B Antigen Negative (Negative) SARS-CoV-2 Antigen (Rapid) Negative (NEGATIVE) Test 12/10/24 00:25 Hemoglobin A1c 5.5 % A1C (<5.7) Other Laboratory Tests 12/11/24 06:25 Brief Hx & Hospital Course: 34-year-old female with past medical history of idiopathic thrombocytopenia, who came to the hospital due to bilateral lower extremity weakness. Patient states her symptoms began on Tuesday with weakness in her legs. By Tuesday evening she was experiencing weakness, numbness, tingling, and pain in bilateral lower extremities that prompted her to come to the hospital. She has a history of ITP, and states she felt similar prior when her platelets were low so she thought it could be that. Seen by neurology, MRI negative signed off and will follow as outpatient Condition at Discharge: Good Final Diagnosis/Problems List paresthesia lower extremity Discharge Disposition: Home Discharge Instruct/Medications Diet: Regular Activity: No Restrictions, As Tolerated Follow Up/Referral: PCP in 7 days Medications: home medications Scheduled PRN Tramadol Hcl (Tramadol Hcl), 1 TAB PO [id number] PRN for PAIN SCALE 7 THRU 10, (Reported) Discharge Statement: "Patient was advised to return to the ER or call 911 if any headaches, dizziness, shortness of breath, chest pain, abdominal pain, bleeding, fevers, or worsening of medical condition. Patient was counseled about treatment plan, medications, possible side effects, patientverbalized understanding. All questions were answered to the best of my ability. This discharge took greater then 30 minutes in planning, reviewing documentation, counseling the patient, and discussing with other team members." ASSESSMENT ASSESSMENT Assessment paresthesia lower extremity Date of Service: Dec 11, 2024 Billing Provider: LAURE STALLWORTH MD Common Visit Codes: 40594-NAZ/OBS DISCH DAY >30min LAURE TSALLWORTH MD Dec 23, 2024 06:13
== END 2024-12-11 15:30 | disposition home or self-care (01) | DRG 58 ==
LOC: ER 23:41 → OVERFLOW 12-10 07:48 → TELE-EAST 12-10 07:50
PROVIDERS: ADMIT Hospitalist; ATTEND Hospitalist
PROC: 009U3ZX Drainage of Spinal Canal, Percutaneous Approach, Diagnostic (ICD-10-PCS; principal; 2024-12-10)
DX: R20.2 Paresthesia of skin (principal); E66.01 Morbid (severe) obesity due to excess calories; M79.605 Pain in left leg; F41.9 Anxiety disorder, unspecified; R53.1 Weakness; Z20.822 Contact with and (suspected) exposure to COVID-19; G97.1 Other reaction to spinal and lumbar puncture; R73.9 Hyperglycemia, unspecified; Z86.2 Personal history of diseases of the blood and blood-forming organs and certain disorders involving the immune mechanism; Z82.49 Family history of ischemic heart disease and other diseases of the circulatory system; Z83.3 Family history of diabetes mellitus; Y84.4 Aspiration of fluid as the cause of abnormal reaction of the patient, or of later complication, without mention of misadventure at the time of the procedure; Y92.89 Other specified places as the place of occurrence of the external cause; M79.604 Pain in right leg
CPT/HCPCS: 36415; 62270; 70450; 71045; 80048; 80053; 81001; 82042; 82784; 82945; 83036; 84157; 85025; 87070; 87205; 87426; 87529; 87804; 89051; 96374; 96375; 97163; 99291; G0378; J2405